=== PATIENT | female | born 1945 | race African-American/Black ===

== ENCOUNTER 2021-08-27 10:10 | Emergency (ER) | payer MEDICARE, MEDICAID, SELFPAY ==
--- NOTE | ~2021-08-27 | CT_ITS ---
EXAMINATION: CT CERVICAL SPINE WITHOUT CONTRAST CLINICAL INFORMATION: Fall with neck pain COMPARISON: None TECHNIQUE: CT cervical spine without intrathecal contrast with coronal and sagittal reconstructions. This CT examination was performed using dose optimization techniques as appropriate, variously including the following: *Automated exposure control *Adjustment of mA and/or kV according to patient size (this includes techniques or standardized protocols for targeted exams where dose is matched to indication/reason for exam; i.e. extremities or head) *Use of iterative reconstruction technique DLP: 344.74 mGy-cm FINDINGS: No acute cervical spine fracture identified. No abnormal prevertebral soft tissue swelling. Paraspinal fat planes are maintained. There is bridging from spurring of the anterior longitudinal ligament C2-T1. There is degenerative change involving the C1 and C2 joint space with sclerosis, spurring, and some articular irregularity. No significant neural foraminal bony encroachment. There is cerumen seen within the external auditory canals bilaterally. Visualized paranasal sinuses mastoid air cells unremarkable. No significant abnormality temporomandibular joints appreciated. Pterygoid plates intact. CT/CT cervical spine wo con IMPRESSION: Cervical spondylosis without evidence of acute fracture. Fleischner guidelines were followed.
--- NOTE | ~2021-08-27 | CT_ITS ---
EXAMINATION: CT PELVIS WITHOUT CONTRAST CLINICAL INFORMATION: Concern for right hip fracture. Fall. Right hip pain. COMPARISON: Plain film of the right hip today. TECHNIQUE: Helical scanning was performed with submillimeter collimation through the pelvis. Sagittal and coronal multiplanar 2-D reconstructions were obtained. This CT examination was performed using dose optimization techniques as appropriate, variously including the following: *Automated exposure control *Adjustment of mA and/or kV according to patient size (this includes techniques or standardized protocols for targeted exams where dose is matched to indication/reason for exam; i.e. extremities or head) *Use of iterative reconstruction technique DLP: 514 mGy-cm FINDINGS: There is no fracture of pelvis or either the right or left hip. There is moderate joint narrowing and moderate bone spurs of the superior lateral acetabulum. No bony erosions. No periarticular calcification. The sacroiliac joints are normal. There is degenerative spondylosis of lower lumbar spine. Symphysis pubis is normal. Uterus is lobular in contour with multiple calcifications due to calcified fibroid. The bladder is unremarkable. Visualized bowel loops unremarkable. No pelvic fluid collection or hematoma. CT/CT pelvis wo con IMPRESSION: No acute abnormality. No fracture or dislocation of pelvis or hips.
--- NOTE | ~2021-08-27 | XR_ITS ---
EXAMINATION: XR HIP, RIGHT CLINICAL INFORMATION: Fall with right hip pain COMPARISON: None TECHNIQUE: Two views of the right hip. FINDINGS: No acute fracture or dislocation of the right hip is seen. The oblique AP view of the hip is not a traditional view and gives the appearance of possible fracture however the oblique view demonstrates that there is no fracture. Joint space is maintained. On a single rotated film of the pelvis no definite acute fracture or diastases of the pelvis is seen. There is degenerative change of the right sacroiliac joint. Multiple calcified uterine fibroids are evident. There is significant degenerative disc disease seen involving the lower lumbar spine. XR/XR hip RT w PEL1V IMPRESSION: No acute fracture or dislocation of the right hip. Degenerative change of the lower lumbar spine and right sacroiliac joint.
--- NOTE | ~2021-08-27 | CT_ITS ---
EXAMINATION: CT HEAD WITHOUT CONTRAST CLINICAL INFORMATION: Fall with injury to head COMPARISON: None TECHNIQUE: Contiguous axial imaging was performed from the skull base to vertex without intravenous administration of contrast. This CT examination was performed using dose optimization techniques as appropriate, variously including the following: *Automated exposure control *Adjustment of mA and/or kV according to patient size (this includes techniques or standardized protocols for targeted exams where dose is matched to indication/reason for exam; i.e. extremities or head) *Use of iterative reconstruction technique DLP: 344.74 mGy-cm FINDINGS: There is no evidence of acute intracranial hemorrhage or territorial infarction. No abnormal mass effect or midline shift is seen. Duncan to white matter differentiation is well preserved. No extra-axial fluid collections are identified. The ventricles, sulci, and cisterns are mildly prominent consistent with some degree of atrophy. There is some periventricular white matter low density present consistent with microangiopathy. The osseous structures and soft tissues are normal. The mastoid air cells and visualized portions of the paranasal sinuses are well aerated. CT/CT head/brain wo con IMPRESSION: No acute intracranial pathology. Findings consistent with microangiopathy.
[2021-08-27 10:15] VITALS: BP 127/62; BP 133/67; PULSE 67; RESP 18; TEMP 36.6; O2SAT 95; O2SAT 96; BMI 32.9
[2021-08-27 10:23] VITALS: BP 133/67; PULSE 66; RESP 16; O2SAT 98
--- NOTE | 2021-08-27 11:30 | ED.FALL ---
HPI - Fall General Chief Complaint: Fall Stated Complaint: FALL W/LAC BACK OF HEAD,+CCOLLAR-THINNERS,FROM SNF Time Seen by Provider: 08/27/21 11:08 Source: patient and EMS Mode of arrival: EMS History of Present Illness HPI Narrative: 76-year-old female with past medical history of ankylosing hyperostosis, CVA, dysphagia, HTN, hypothyroid, iron deficiency, PTSD, schizoaffective, schizophrenia, BIBA from [facility] s/p mechanical fall out of chair lift while being transferred, + hit head with laceration to posterior skull, denies LOC, denies taking anticoagulation. Reports right hip pain. Denies symptoms prior to fall. Denies CP, SOB, abdominal pain, nausea/vomiting, neck/back pain. Tetanus unknown MD complaint: fall Onset (ago): hour(s) Related Data Previous Rx's Medication Instructions Recorded lidocaine 5 % topical patch 1 patch TOPICAL DAILY PRN #30 ea 08/27/21 (Lidoderm) MDD remove after 12 hours Allergies Allergy/AdvReac Type Severity Reaction Status Date / Time penicillin G [Penicillin G] Allergy Unknown UNKNOWN PT Unverified 04/03/20 17:44 REFUSES TO GIVE INFO Review of Systems Review of Systems: Constitutional: No Fever, No Chills, No Fatigue, No Malaise ENT/Mouth: No Ear Pain, No Nasal Congestion, No sore throat, No Rhinorrhea, No Swallowing Difficulty Eyes: No Eye Pain, No Swelling, No Redness, No Vision Changes Cardiovascular: No Chest Pain, No SOB, No Edema, No Palpitations Respiratory: No Cough, No Sputum, No Dyspnea Gastrointestinal: No Nausea, No Vomiting, No Diarrhea, No Constipation, No Abdominal pain Genitourinary: No Dysuria, No Urinary Incontinence, No Urgency, No Flank Pain, No Urinary Flow Changes Musculoskeletal: No joint pain, No Myalgias, No Joint Swelling Skin: + laceration, No rash Neuro: No Weakness, No Numbness, No Paresthesias, No Loss of Consciousness, No Dizziness, + Headache Yes all other systems are reviewed and are negative FOR[facility]LY [facility] Past Medical History Attestation statement: The following information was validated with the patient. Medical History Ankylosing hyperostosis CVA (cerebral vascular accident) Dysphagia HTN (hypertension) Hypothyroid Iron deficiency PTSD (post-traumatic stress disorder) Schizo affective schizophrenia Social History Social History Advance Directives: Yes Advance Directives on File: Yes Advance Directives Date on File: 08/27/21 Physical Exam Vital Signs: Vital Signs: Last Vital Signs Temp 98.4 F 08/27/21 15:55 Pulse 77 08/27/21 15:55 Resp 18 08/27/21 15:55 BP 131/64 08/27/21 15:55 Pulse Ox 96 08/27/21 15:55 BMI result Body Mass Index 32.9 Const: General: cooperative, no acute distress, alert and awake Orientation/consciousness: patient oriented x3 Limitations: no limitations HENMT: Other: 4 cm laceration noted to posterior skull. Clean. Bleeding controlled. No palpable skull depression Head: Yes normal to inspection, No Ortiz's sign and No raccoon eyes Ears: hearing grossly normal bilaterally General nose exam: Normal external nose present Face and sinus: Yes normal facial exam Throat: Yes posterior oropharynx normal Eyes: General: appearance normal, both eyes and all related structures Pupils: Equal, round and reactive pupils present EOM: EOMs intact bilaterally Neck: Other: C-collar in place. No midline cervical spinous tenderness Neck: Yes normal visual inspection and Yes no meningeal signs Chest: Chest palpation & inspection: no crepitus and no tenderness Resp: Effort & Inspection: normal respiratory effort and no respiratory distress Auscultation: clear to auscultation bilaterally Cardio: Rate: regular rate Heart sounds: S1 normal heart sound present and S2 normal heart sound present GI: Inspection: Yes normal to inspection Palpation (GI): Soft to palpation, nontender, no guarding and not rigid Back/Spine/Pelvis: Other: No midline thoracic/lumbar spinous tenderness/step-off or deformity Skin: Rashes: no rashes Wounds: no wounds Neuro: General: patient oriented x3, tone normal, moves all extremities and no meningeal signs Cranial nerves: Yes CN's II-XII intact bilaterally and Yes Equal, round and reactive pupils present Extrem: Other: Baseline contractures. Right hip tender to palpation. Decreased ROM at baseline. NV intact distally Course Course Course Narrative: CT head/brain wo con IMPRESSION: No acute intracranial pathology. Findings consistent with microangiopathy. CT cervical spine wo con IMPRESSION: Cervical spondylosis without evidence of acute fracture.? Fleischner guidelines were followed. >> C-collar cleared. Laceration repaired -1514--XR hip RT w PEL1V IMPRESSION: No acute fracture or dislocation of the right hip. Degenerative change of the lower lumbar spine and right sacroiliac joint. >> patient is still complaining of significant hip pain. Will obtain CT to rule out fracture. Patient reports she is minimally ambulatory CT pelvis wo con IMPRESSION: No acute abnormality. No fracture or dislocation of pelvis or hips. >> results discussed with patient. Plan to DC back to her SNF Procedures Laceration Laceration 1: Site: scalp Size (cm): 4 Description: linear Depth: simple, single layer Pre-repair: wound explored Number of sutures: 7 (lily) MDM - Fall MDM Narrative Medical decision making narrative: 76-year-old female with past medical history of ankylosing hyperostosis, CVA, dysphagia, HTN, hypothyroid, iron deficiency, PTSD, schizoaffective, schizophrenia, BIBA from [facility] s/p mechanical fall out of chair lift while being transferred, + hit head with laceration to posterior skull & right hip pain. On exam vital signs stable, NAD/nontoxic-appearing, A&O x3, no focal neuro deficits. Physical exam as above. Concern for ICH/fracture. Low concern for metabolic or infectious etiology. Will update tetanus Plan: Head/C-spine CT, hip/pelvic x-ray, repair laceration Differential Diagnosis Differential diagnosis: Likely fracture and concussion without loss of consciousness Medical Records Attestation: I reviewed the patient's medical records. Lab Data Attestation: I reviewed the patient's lab results. Discharge Plan Discharge Clinical Impression: Laceration of scalp, Fall Acute hip pain Qualifiers: Laterality: right Qualified Code(s): M25.551 - Pain in right hip Patient Disposition: Xfer SNF Transfer Details: [facility] Instructions: Laceration (ED), Arthralgia (ED) Additional Instructions: the CT of your head and neck did not show any acute abnormalities The CT of your hip and pelvis does not show any fracture You have a large laceration to the back of your head, lily were placed, you need to return to any emergency department or urgent care in 7-10 days to have the lily taken out Do not scrub lily, pat dry. Apply bacitracin and or Neosporin as needed Lidoderm patches are numbing patches, apply to painful area. In addition take Tylenol at home Please follow-up with her doctor. If symptoms persist or worsen please return to the ED Prescriptions: New lidocaine [Lidoderm] 5 % adhesive patch,medicated 1 patch topical DAILY MDD remove after 12 hours PRN (Reason: pain) Qty: 30 0RF Rx Instructions: leave on most painful area for up to 12 hrs Referrals: ED Physician,Generic [Emergency Provider] - 1 week (Return to any emergency department or urgent care in 7-10 days to have your lily taken out) Harper Macario MD [Primary Care Provider] - 2 days
[2021-08-27] MEDS: Diphth,Pertus(ACell),Tet Adult 0.5 ML SYRINGE IM (13:47)
[2021-08-27] MEDS: Acetaminophen 325 MG TABLET 650 MG PO (14:29)
[2021-08-27] MEDS: oxyCODONE HCl Immed Release 5 MG TABLET PO (15:33)
[2021-08-27 15:55] VITALS: BP 131/64; PULSE 77; RESP 18; TEMP 36.9; O2SAT 96
== END 2021-08-27 20:31 | disposition skilled nursing facility (03) ==
PROVIDERS: Emergency Provider Emergency Medicine Emergency Medical Services; PCP Internal Medicine
DX: S01.01XA Laceration without foreign body of scalp, initial encounter (principal); S10.91XA Abrasion of unspecified part of neck, initial encounter; G44.309 Post-traumatic headache, unspecified, not intractable; M54.2 Cervicalgia; M25.551 Pain in right hip; R10.2 Pelvic and perineal pain; W01.0XXA Fall on same level from slipping, tripping and stumbling without subsequent striking against object, initial encounter; Y93.9 Activity, unspecified; Y92.9 Unspecified place or not applicable; Y99.9 Unspecified external cause status; Z79.899 Other long term (current) drug therapy
CPT/HCPCS: 12002; 70450; 72125; 72192; 73502; 90471; 90715; 99284